=== PATIENT | male | born 1980 | race Caucasian/White ===

== ENCOUNTER 2017-09-11 14:00 | Emergency (ER) | payer OTHER ==
[~2017-09-11] VITALS: Ht 180.3 cm; Wt 86.2 kg
[2017-09-11] MEDS ORDERED: LISI20 PO (14:24)
[2017-09-11] MEDS ORDERED: Adipex-P37.5 MG PO (14:24)
[2017-09-11] MEDS ORDERED: TESTOSTERONE (14:25)
[2017-09-11] MEDS ORDERED: Cheratussin AC118 ML PO (14:52)
== END 2017-09-11 14:58 | disposition home or self-care (01) ==
LOC: ER 14:00
DX: R09.1 Pleurisy (principal); Z79.899 Other long term (current) drug therapy; I10 Essential (primary) hypertension
CPT/HCPCS: 71046; 99283

== ENCOUNTER 2017-09-20 16:04 | Emergency (ER) | payer OTHER ==
[~2017-09-20] VITALS: Ht 180.3 cm; Wt 86.2 kg
[~2017-09-20 16:04] MED LIST: Adipex-P37.5 MG PO; Cheratussin AC118 ML PO; LISI20 PO; TESTOSTERONE
== END 2017-09-20 17:04 | disposition home or self-care (01) ==
LOC: ER 16:04
DX: R07.89 Other chest pain (principal); Z79.899 Other long term (current) drug therapy
CPT/HCPCS: 99282

== ENCOUNTER 2023-11-15 19:42 | Emergency (ER) | payer OTHER ==
[~2023-11-15] VITALS: Ht 180.3 cm; Wt 88.5 kg
[~2023-11-15 19:42] MED LIST changes: +AMPDEX5; +HYDMOR3S PO; +MELA3 PO
[2023-11-15 20:22] LABS: Source, Urine Clean Catch
[2023-11-15 20:28] LABS: Appearance, Urine Clear (Clear); Bilirubin, Urine Neg (Neg); Blood, Urine Neg (Neg); Color, Urine Yellow (P-Yellow); Glucose Qualitative, Urine Neg (Neg); Ketones, Urine 1+ (Neg); Leukocyte Esterase, Urine Neg (Neg); Nitrite, Urine Neg (Neg); Protein, Urine 1+ (Neg); Urobilinogen, Urine 1+ (Normal)
[2023-11-15 20:47] LABS: BASOPHILS ABSOLUTE AUTO 0.06 K/mm3 (0.00-0.23); BASOPHILS PERCENT AUTO 1 % (0-2); EOSINOPHILS PERCENT AUTO 2 % (0-6); Hematocrit 49.1 % (37.0-53.0); Hemoglobin 16.3 g/dL (13.5-17.5); IMMATURE GRAN ABSOLUTE AUTO 0.03 K/mm3 (0.00-0.10); IMMATURE GRAN PERCENT AUTO 0 % (0-1); LYMPHOCYTES ABSOLUTE AUTO 1.72 K/mm3 (0.84-5.20); LYMPHOCYTES PERCENT AUTO 20 % (21-46); MONOCYTES ABSOLUTE AUTO 0.68 K/mm3 (0.16-1.47); MONOCYTES PERCENT AUTO 8 % (4-13); Mean Corpuscular HGB 29.5 pg (26.0-34.0); Mean Corpuscular HGB Conc 33.2 g/dL (31.5-36.5); Mean Corpuscular Volume 89 fL (80-100); Mean Platelet Volume 10.1 fL (9.1-12.4); NEUTROPHILS ABSOLUTE AUTO 5.95 K/mm3 (1.96-9.15); NEUTROPHILS PERCENT AUTO 69 % (41-73); Platelet Count 411 K/mm3 (150-400); RDW Coefficient Variation 13.2 % (11.7-14.2); RDW Standard Deviation 43.3 fL (35.1-46.3); Red Blood Cell Count 5.52 M/mm3 (4.30-5.90); White Blood Cell Count 8.64 K/mm3 (4.00-11.30)
[2023-11-15 21:09] LABS: Albumin, Blood 4.1 g/dL (3.4-5.0); Bilirubin, Total 0.3 mg/dL (0.1-1.0); Bun/Creatinine Ratio 26.2 (12.0-20.0); Calcium, Blood 9.6 mg/dL (8.5-10.1); Creatinine, Blood 0.76 mg/dL (0.60-1.20); Globulin, Blood 4.3 g/dL (2.2-4.0); Potassium, Blood 3.7 mmol/L (3.5-5.5); Total Protein, Blood 8.4 g/dL (6.4-8.2)
[2023-11-15] MEDS ORDERED: BUPROPION XL150 M1 PO (21:47)
[2023-11-15] MEDS ORDERED: OXYC5 PO (21:47)
[2023-11-15] MEDS ORDERED: PRAZ5 PO (21:47)
[2023-11-15] MEDS ORDERED: Amphetamine Sal20 MG PO (21:48)
[2023-11-15] MEDS ORDERED: Lidocaine 4% 1 Patch TOP ONE (22:30)
[2023-11-15] MEDS ORDERED: Ketorolac Tromethamine 30mg Vial IV ONE (22:30)
[2023-11-15] MEDS ORDERED: Cyclobenzaprine HCl 10 MG Tab PO ONE (22:30)
[2023-11-15] MEDS ORDERED: CYCL10 PO (22:33)
[2023-11-15 22:50] VITALS: BP 155/82
[2023-11-16] MEDS ORDERED: BUPR75 (13:06)
[2023-11-16] MEDS ORDERED: NAPR500 (13:06)
[2023-11-16] MEDS ORDERED: METO25ER (13:06)
[2023-11-16] MEDS ORDERED: HYDHCL25 PO (17:35)
== END 2023-11-15 22:55 | disposition home or self-care (01) ==
LOC: ER 19:42
PROVIDERS: Emergency Medicine
DX: I10 Essential (primary) hypertension (principal); M54.42 Lumbago with sciatica, left side; Z88.8 Allergy status to other drugs, medicaments and biological substances; Z79.899 Other long term (current) drug therapy
CPT/HCPCS: 80053; 84484; 85025; 93005; 93010; 96374; 99284-25; A9270; J1885

== ENCOUNTER 2023-11-16 12:54 | Emergency (ER) | payer OTHER ==
[~2023-11-16] VITALS: Ht 180.3 cm; Wt 88.5 kg
[~2023-11-16 12:54] MED LIST changes: +Amphetamine Sal20 MG PO; +BUPROPION XL150 M1 PO; +CYCL10 PO; +OXYC5 PO; +PRAZ5 PO
[2023-11-16] MEDS ORDERED: NAPR500 (13:06)
[2023-11-16] MEDS ORDERED: METO25ER (13:06)
[2023-11-16] MEDS ORDERED: BUPR75 (13:06)
[2023-11-16 13:29] LABS: BASOPHILS ABSOLUTE AUTO 0.05 K/mm3 (0.00-0.23); BASOPHILS PERCENT AUTO 1 % (0-2); EOSINOPHILS ABSOLUTE AUTO 0.15 K/mm3 (0.00-0.68); EOSINOPHILS PERCENT AUTO 2 % (0-6); Hematocrit 45.1 % (37.0-53.0); Hemoglobin 15.1 g/dL (13.5-17.5); IMMATURE GRAN ABSOLUTE AUTO 0.03 K/mm3 (0.00-0.10); IMMATURE GRAN PERCENT AUTO 1 % (0-1); LYMPHOCYTES ABSOLUTE AUTO 1.25 K/mm3 (0.84-5.20); LYMPHOCYTES PERCENT AUTO 19 % (21-46); MONOCYTES ABSOLUTE AUTO 0.54 K/mm3 (0.16-1.47); MONOCYTES PERCENT AUTO 8 % (4-13); Mean Corpuscular HGB 29.8 pg (26.0-34.0); Mean Corpuscular HGB Conc 33.5 g/dL (31.5-36.5); Mean Corpuscular Volume 89 fL (80-100); Mean Platelet Volume 10.3 fL (9.1-12.4); NEUTROPHILS ABSOLUTE AUTO 4.53 K/mm3 (1.96-9.15); NEUTROPHILS PERCENT AUTO 69 % (41-73); Platelet Count 362 K/mm3 (150-400); RDW Coefficient Variation 13.2 % (11.7-14.2); RDW Standard Deviation 43.4 fL (35.1-46.3); Red Blood Cell Count 5.07 M/mm3 (4.30-5.90); White Blood Cell Count 6.55 K/mm3 (4.00-11.30)
[2023-11-16 13:55] LABS: Albumin, Blood 3.6 g/dL (3.4-5.0); Bilirubin, Total 0.4 mg/dL (0.1-1.0); Bun/Creatinine Ratio 23.1 (12.0-20.0); Calcium, Blood 9.3 mg/dL (8.5-10.1); Creatinine, Blood 0.82 mg/dL (0.60-1.20); Globulin, Blood 3.6 g/dL (2.2-4.0); Potassium, Blood 3.9 mmol/L (3.5-5.5); Total Protein, Blood 7.2 g/dL (6.4-8.2)
[2023-11-16] MEDS ORDERED: Droperidol 5 mg/2 ml Vial IV ONE (16:40)
[2023-11-16] MEDS ORDERED: HYDHCL25 PO (17:35)
[2023-11-16 18:00] VITALS: BP 167/110
== END 2023-11-16 18:02 | disposition home or self-care (01) ==
LOC: ER 12:54
PROVIDERS: Student in an Organized Health Care Education/Training Program
DX: I10 Essential (primary) hypertension (principal); F41.9 Anxiety disorder, unspecified; G89.29 Other chronic pain; M54.9 Dorsalgia, unspecified; Z88.8 Allergy status to other drugs, medicaments and biological substances; Z79.899 Other long term (current) drug therapy; F43.10 Post-traumatic stress disorder, unspecified
CPT/HCPCS: 76770; 80053; 85025; 96374; 99284-25; J1790